=== PATIENT | male | born 1980 | race Caucasian/White ===

== ENCOUNTER 2020-06-04 00:10 | Day surgery (SDC) | payer BC ==
[2020-06-04] MEDS ORDERED: AMLODIPINE BESYL5 MG PO (10:49)
[2020-06-04] MEDS ORDERED: ZOLOFT25 MG PO (10:49)
[2020-06-04] MEDS ORDERED: KLONOPIN0.5 MG PO (10:50)
== END 2020-06-04 11:00 | disposition home or self-care (01) ==
LOC: ATC 00:10
DX: A53.9 Syphilis, unspecified (principal); K62.5 Hemorrhage of anus and rectum; I10 Essential (primary) hypertension; M10.9 Gout, unspecified; D89.0 Polyclonal hypergammaglobulinemia; Z79.2 Long term (current) use of antibiotics; Z79.899 Other long term (current) drug therapy
CPT/HCPCS: 96372; J0561

== ENCOUNTER 2020-06-16 10:34 | Day surgery (SDC) | payer BC ==
[~2020-06-16] VITALS: Ht 180.3 cm; Wt 110.5 kg
[~2020-06-16 10:34] MED LIST: AMLODIPINE BESYL5 MG PO; KLONOPIN0.5 MG PO; ZOLOFT25 MG PO
[2020-06-23 11:37] LABS: Performing Lab SYMBIODX; Test Name TISSUE BIOPSY
== END 2020-06-16 12:22 | disposition home or self-care (01) ==
LOC: ORSCSDS 10:34
PROVIDERS: Pathology Clinical Pathology/Laboratory Medicine; Student in an Organized Health Care Education/Training Program
PROC: 0DBN8ZX Excision of Sigmoid Colon, Via Natural or Artificial Opening Endoscopic, Diagnostic (ICD-10-PCS; principal; 2020-06-16 12:00)
PROC: 0DBK8ZX Excision of Ascending Colon, Via Natural or Artificial Opening Endoscopic, Diagnostic (ICD-10-PCS; principal; 2020-06-16 12:00)
PROC: 0DBH8ZX Excision of Cecum, Via Natural or Artificial Opening Endoscopic, Diagnostic (ICD-10-PCS; principal; 2020-06-16 12:00)
DX: K92.1 Melena (principal); D12.2 Benign neoplasm of ascending colon; D12.5 Benign neoplasm of sigmoid colon; K64.8 Other hemorrhoids; I10 Essential (primary) hypertension; B20 Human immunodeficiency virus [HIV] disease; Z79.899 Other long term (current) drug therapy
CPT/HCPCS: 88305; 88341; 88342; J0461; J2250; J2405; J2704; J7120